=== PATIENT | female | born 1960 | race Caucasian/White ===

== ENCOUNTER 2016-11-12 15:17 | Emergency (ER) | payer OTHER ==
[2016-11-12 15:31] VITALS: BP 135/85; PULSE 82; TEMP 98.1; BMI 27.3
--- NOTE | 2016-11-12 15:50 | PDOC ---
History of Present Illness - General History Source: Patient, Old Records Exam Limitations: No Limitations - History of Present Illness Initial Comments: 11/12/16 16:43 The patient is a 56 year old female with a significant past medical history of hyperlipidemia who presents to the emergency department today complaining of left foot pain for 5 days. The patient states that she believes the symptoms are the result of a fall she had one month ago. She describes the pain as soreness worsened on exertion. The patient denies arthritis and gout. The patient denies chest pain, shortness of breath, and cough. The patient denies nausea, vomiting, and diarrhea. <Shen Andrews - Last Filed: 11/12/16 20:19> - History of Present Illness Initial Comments: 11/16/16 09:33 There is mild erythema, induration, and point tenderness over the prominence of the scaphoid bone. No sensory or motor deficits distally. No history of trauma or injury of any kind. X-ray shows soft tissue swelling, possibly some increase in bone density. Jamir wrap applied. Crutches were recommended, but patient referred to use a cane. Minimal weight bearing and follow-up with orthopedist recommended. Anti- inflammatories were begun. Patient was adequately ambulatory upon discharge with her to follow up as directed. Exact etiology of the inflammation is uncertain which should be investigated by orthopedist in a timely fashion. Patient understands and agrees. <Anthony Pizano - Last Filed: 11/16/16 09:37> - General Chief Complaint: Pain, Acute Stated Complaint: PAIN LEFT FOOT Time Seen by Provider: 11/12/16 15:42 Past History <Shen Andrews - Last Filed: 11/12/16 20:19> - Past Medical History GI Disorders: Yes (REFLUX) Hypercholesterolemia: Yes Psychiatric Problems: Yes (ANXIETY) - Psycho/Social/Smoking Cessation Hx Anxiety: No Suicidal Ideation: No Smoking History: Never smoked Have you smoked in the past 12 months: Yes Number of Cigarettes Smoked Daily: 20 Information on smoking cessation initiated: No 'Breaking Loose' booklet given: 05/31/16 Hx Alcohol Use: No Drug/Substance Use Hx: No Substance Use Type: None <Anthony Pizano - Last Filed: 11/16/16 09:37> - Past Medical History Allergies/Adverse Reactions: Allergies Allergy/AdvReac Type Severity Reaction Status Date / Time acetaminophen [From Vicodin] Allergy Verified 11/12/16 15:19 hydrocodone bitartrate Allergy Verified 11/12/16 15:19 [From Vicodin] Home Medications: Ambulatory Orders Aspirin [ASA -] 81 mg PO DAILY tab.chew 06/01/16 Simvastatin [Zocor -] 20 mg PO HS 06/01/16 Sertraline HCl [Zoloft -] 50 mg PO HS 07/06/16 Ibuprofen 800 mg PO TID #20 tablet 11/12/16 Review of Systems - Review of Systems Able to Perform ROS?: Yes Comments:: 11/12/16 16:44 CONSTITUTIONAL: Absent: fever, chills, diaphoresis, generalized weakness, malaise, loss of appetite HEENT: Absent: rhinorrhea, nasal congestion, throat pain, throat swelling, difficulty swallowing, mouth swelling, ear pain, eye pain, visual Changes CARDIOVASCULAR: Absent: chest pain, syncope, palpitations, irregular heart rate, lightheadedness , peripheral edema RESPIRATORY: Absent: cough, shortness of breath, dyspnea with exertion, orthopnea, wheezing, stridor, hemoptysis GASTROINTESTINAL: Absent: abdominal pain, abdominal distension, nausea, vomiting, diarrhea, constipation, melena, hematochezia GENITOURINARY: Absent: dysuria, frequency, urgency, hesitancy, hematuria, flank pain, genital pain MUSCULOSKELETAL: Present: left foot pain SKIN: Absent: rash, itching, pallor HEMATOLOGIC/IMMUNOLOGIC: Absent: easy bleeding, easy bruising, lymphadenopathy, frequent infections ENDOCRINE: Absent: unexplained weight gain, unexplained weight loss, heat intolerance, cold intolerance NEUROLOGIC: Absent: headache, focal weakness or paresthesias, dizziness, seizure, mental status changes, bladder or bowel incontinence PSYCHIATRIC: Absent: anxiety, depression, suicidal or homicidal ideation, hallucinations. <Shen Andrews - Last Filed: 11/12/16 20:19> *Physical Exam - Vital Signs Last Vital Signs Temp Pulse Resp BP Pulse Ox 98.1 F 82 16 135/85 97 11/12/16 15:25 11/12/16 15:25 11/12/16 15:25 11/12/16 15:25 11/12/16 15:25 - Physical Exam Comments: 11/12/16 16:58 GENERAL: Well developed, well nourished. Awake and alert. In no acute distress. HEENT: Normocephalic, atraumatic. PERRLA, EOMI. No conjunctival pallor. Sclera are non- icteric. Moist mucous membranes. Oropharynx is clear. NECK: Supple. Full ROM. No JVD. Carotid pulses 2+ and symmetric, without bruits. No thyromegaly. No lymphadenopathy. CARDIOVASCULAR: Regular rate and rhythm. No murmurs, rubs, or gallops. Distal pulses are 2+ and symmetric. PULMONARY: No evidence of respiratory distress. Lungs clear to auscultation bilaterally. No wheezing, rales or rhonchi. ABDOMINAL: Soft. Non-tender. Non-distended. No rebound or guarding. No organomegaly. Normoactive bowel sounds. MUSCULOSKELETAL Normal range of motion at all joints. No bony deformities or tenderness. No CVA tenderness. EXTREMITIES: Swelling, mild erythema and tenderness over the scaphoid prominence of the left foot. No abrasion or laceration. No history of an acute injury, full pulses and no sensory deficit. SKIN: Warm and dry. Normal capillary refill. No rashes. No jaundice. NEUROLOGICAL: Alert, awake, appropriate. Cranial nerves 2-12 intact. No deficits to light touch and temperature in face, upper extremities and lower extremities. No motor deficits in the in face, upper extremities and lower extremities. Normoreflexic in the upper and lower extremities. Normal speech. <Shen Andrews - Last Filed: 11/12/16 20:19> - Vital Signs Last Vital Signs Temp Pulse Resp BP Pulse Ox 98.1 F 82 16 135/85 97 11/12/16 15:25 11/12/16 15:25 11/12/16 15:25 11/12/16 15:25 11/12/16 15:25 <Anthony Pizano - Last Filed: 11/16/16 09:37> ED Treatment Course - LABORATORY CBC & Chemistry Diagram: 11/12/16 16:05 11/12/16 16:05 <Shen Andrews - Last Filed: 11/12/16 20:19> - LABORATORY CBC & Chemistry Diagram: 11/12/16 16:05 11/12/16 16:05 <Anthony Pizano - Last Filed: 11/16/16 09:37> *DC/Admit/Observation/Transfer - Attestations Scribe Attestion: 11/12/16 16:44 Documentation prepared by Shen Andrews, acting as medical billing associate for Anthony Pizano MD. <Shen Andrews - Last Filed: 11/12/16 20:19> - Discharge Dispostion Admit: No <Anthony Pizano - Last Filed: 11/16/16 09:37> Diagnosis at time of Disposition: Tenosynovitis of foot - Discharge Dispostion Disposition: HOME Condition at time of disposition: Stable - Prescriptions Prescriptions: Ibuprofen 800 mg PO TID #20 tablet - Referrals Referrals: Hamlet Nath MD [Staff Physician] - - Patient Instructions Printed Discharge Instructions: DI for Tenosynovitis Additional Instructions: Use a cane, avoid weight bearing, rest and elevate, ice, anti-inflammatory medication as directed See electronic commerce specialist in 2 or 3 days for further evaluation and treatment.
[2016-11-12 16:42] LABS: BASOPHIL 0.3 % (0-2.0); EOSINOPHIL 2.6 % (0-4.5); MCH 31.8 pg (25.7-33.7); MEAN CELL VOLUME 96.4 fl (80-96); MEAN PLT VOLUME 7.9 fl (7.5-11.1); NEUTROPHILS 60.5 % (42.8-82.8); PLATELET COUNT 310 K/MM3 (134-434); RDW 12.5 % (11.6-15.6); WHITE BLOOD COUNT 9.9 K/mm3 (4.0-10.0)
[2016-11-12 16:57] LABS: ALBUMIN 4.8 g/dl (3.5-5.0); ALK PHOS 98 U/L (32-92); ANION GAP 7 (8-16); BILIRUBIN,TOTAL 0.4 mg/dl (0.2-1.0); CALCIUM 9.6 mg/dl (8.4-10.2); CO2 28 mmol/L (22-28); CREATININE 0.8 mg/dl (0.6-1.3); GLUCOSE,RANDOM 92 mg/dl (74-106); SGOT/AST 34 U/L (10-42); SGPT/ALT 35 U/L (10-40); TOT PROT 8.1 g/dl (6.4-8.3)
[2016-11-12] MEDS ORDERED: IBUPROFEN 400 MG TABLET (FP) PO ONE (18:20)
== END 2016-11-12 18:33 | disposition home or self-care (01) ==
LOC: FER 15:17
DX: M65.872 Other synovitis and tenosynovitis, left ankle and foot (principal); K21.9 Gastro-esophageal reflux disease without esophagitis; F41.9 Anxiety disorder, unspecified; E78.00 Pure hypercholesterolemia, unspecified; F17.210 Nicotine dependence, cigarettes, uncomplicated; Z79.82 Long term (current) use of aspirin
CPT/HCPCS: 36415; 73630-TC-LT; 80053; 84550; 85025; 99282-25

== ENCOUNTER 2017-04-21 14:22 | Observation (INO) | payer OTHER ==
--- NOTE | 2017-04-21 14:27 | PDOC ---
History of Present Illness - General History Source: Patient Exam Limitations: No Limitations - History of Present Illness Initial Comments: 04/21/17 15:43 The patient is a 57 year old female, with a significant past medical history of hyperlipidemia, who presents to the emergency department with complaints of shortness of breath, chest pain, neck pain, and bilateral arm pain. The patient reports that for the past few days she has had neck pain that originates in the middle of her neck and radiates to both sides. She also reports that this pain radiates to her shoulders. The patient states that today when she left her house her arms felt tight and sore and she experienced some nausea. She reports that he neck pain is worsened with movement of her head and is alleviated by icing the affected area. The patient recalls that last night she did experience some chills. She, headache and dizziness. She denies vomit, diarrhea and constipation. PMH:reflux, anxiety Allergies:Acetaminophen, Hydrocodone bitartrate Social history: Current everyday smoker (1 pack per day), Occasional alcohol use Family History: No history of heart or lung disease PCP: Dr. Joseph Phan <Carmel Gottlieb - Last Filed: 04/21/17 15:47> <Sanchez Lu - Last Filed: 04/21/17 19:55> - General Chief Complaint: Chest Pain Stated Complaint: chest pain, sob, arm pain Time Seen by Provider: 04/21/17 14:25 Past History <Carmel Gottlieb - Last Filed: 04/21/17 15:47> - Past Medical History GI Disorders: Yes (REFLUX) Hypercholesterolemia: Yes Psychiatric Problems: Yes (ANXIETY) - Psycho/Social/Smoking Cessation Hx Anxiety: No Suicidal Ideation: No Smoking History: Never smoked Have you smoked in the past 12 months: Yes Number of Cigarettes Smoked Daily: 20 'Breaking Loose' booklet given: 05/31/16 Hx Alcohol Use: No Drug/Substance Use Hx: No Substance Use Type: None <Sanchez Lu - Last Filed: 04/21/17 19:55> - Past Medical History Allergies/Adverse Reactions: Allergies Allergy/AdvReac Type Severity Reaction Status Date / Time acetaminophen [From Vicodin] Allergy Verified 04/21/17 14:24 hydrocodone bitartrate Allergy Verified 04/21/17 14:24 [From Vicodin] Home Medications: Ambulatory Orders Aspirin [ASA -] 81 mg PO DAILY tab.chew 06/01/16 Simvastatin [Zocor -] 20 mg PO HS 06/01/16 Sertraline HCl [Zoloft -] 50 mg PO DAILY 04/21/17 Review of Systems - Review of Systems Able to Perform ROS?: Yes Comments:: 04/21/17 15:43 CONSTITUTIONAL: +Chills Absent: Fever, Diaphoresis, Generalized Weakness, Malaise, Loss of Appetite HEENT: Absent: Rhinorrhea, Nasal Congestion, Throat Pain, Throat Swelling, Difficulty Swallowing, Mouth Swelling, Ear Pain, Eye Pain, Visual Changes CARDIOVASCULAR:+Chest pain Absent: Syncope, Palpitations, Irregular Heart Rate, Lightheadedness, Peripheral Edema RESPIRATORY:Shortness of breath Absent: Cough, Orthopnea, Wheezing, Stridor, Hemoptysis GASTROINTESTINAL: +Nausea Absent: Abdominal pain, Abdominal Distension , Vomiting, Diarrhea, Constipation , Melena, Hematochezia GENITOURINARY: Absent: Dysuria, Frequency, Urgency, Hesitancy, Flank Pain, Genital Pain MUSCULOSKELETAL: +Bilateral arm pain, +Neck pain, Absent:Joint Swelling, Back pain, SKIN: Absent: Rash, Itching, PalloR HEMEATOLOGIC/IMMUNOLOGIC: Absent: Easy Bleeding, Easy Bruising, Lymphadenopathy, Frequent infections ENDOCRINE: Absent: Unexplained Weight Gain, Unexplained Weight Loss, Heat Intolerance, Cold Intolerance NEUROLOGIC: Absent: Headache, Focal Weakness, Paresthesias, Vertigo, Lightheadedness, Unsteady Gait, Seizure, Mental Status Changes, Incontinence PSYCHIATRIC: Absent: Anxiety, Depression <Carmel Gottlieb - Last Filed: 04/21/17 15:47> *Physical Exam - Vital Signs Last Vital Signs Temp Pulse Resp BP Pulse Ox 98.4 F 89 17 133/78 94 L 04/21/17 14:24 04/21/17 14:24 04/21/17 14:24 04/21/17 14:24 04/21/17 14:24 - Physical Exam Comments: 04/21/17 15:44 GENERAL: +Patient grimaces with movement of her neck. The patient is awake, alert, and fully oriented HEAD: Normal with no signs of trauma. EYES: Pupils equal, round and reactive to light, extraocular movements intact, sclera anicteric, conjunctiva clear. ENT: Ears normal, nares patent, oropharynx clear without exudates. Moist mucous membranes. NECK: +Increased pain with flexion and rotation of the neck Supple without lymphadenopathy, JVD, or masses. LUNGS: Breath sounds equal, clear to auscultation bilaterally. No wheezes, and no crackles. HEART: Regular rate and rhythm, normal S1 and S2 without murmur, rub or gallop. ABDOMEN: +Obese Soft, nontender, normoactive bowel sounds. No guarding, no rebound. No masses. EXTREMITIES: Normal range of motion, no edema. No clubbing or cyanosis. No cords , erythema, or tenderness. NEUROLOGICAL: Cranial nerves II through XII grossly intact. Normal speech, normal gait. PSYCH: Normal mood, normal affect. SKIN: Warm, Dry, normal turgor, no rashes or lesions noted. <Carmel Gottlieb - Last Filed: 04/21/17 15:47> Heart Score/ECG Review - ECG Impressions Comment:: 04/21/17 15:21 Ekg reading: Normal sinus rhythm at 78. Normal axis and normal intervals, no acute ST elevations or depressions Minor nonspecific t wave flattening Otherwise normal ekg. <Carmel Gottlieb - Last Filed: 04/21/17 15:47> - History History: Moderately suspicious - Electrocardiogram EKG: Non specific repolarization disturbance - Age Age: 45-65 - Risk Factors Risk Factors Heart Score: Yes Hx Hypercholesterolemia, Yes Smoking History Based on the list above the patient has:: 1-2 risk factors - Troponin Troponin: </= normal limit - Score Heart Score - Total: 4 - ECG Impressions Comment:: 04/21/17 15:37 In comparison with the old EKG from 06/29/11, the inferior t wave flattening is unchanged. <Sanchez Lu - Last Filed: 04/21/17 19:55> ED Treatment Course - RADIOLOGY Radiograph Interpretation: 04/21/17 15:39 RAD/CHEST PA + LAT Reported by: Dr Ney Michael Reviewed by: Dr. Sanchez Lu Impression: No acute pathology. No significant change. RAD/SPINE - CERVICAL Impression: Straightening. Degenerative changes with wedging. Nuchal ligament calcification. If symptoms persist, further imaging with CT or MR may be of help. - Medications Given in the ED: ED Medications Discontinued Medications Generic Name Dose Route Start Last Admin Trade Name Edgardo PRN Reason Stop Dose Admin Aspirin 162 mg 04/21/17 14:54 04/21/17 15:12 Asa - PO 04/21/17 14:55 162 mg ONCE ONE Administration <Carmel Gottlieb - Last Filed: 04/21/17 15:47> - LABORATORY CBC & Chemistry Diagram: 04/21/17 15:09 04/21/17 15:09 <Sanchez Lu - Last Filed: 04/21/17 19:55> Medical Decision Making - Medical Decision Making 04/21/17 17:28 She is a 57-year-old female with a history of hyperlipidemia and smoking. She presents complaining of neck pain which is radiating to both shoulders and down both arms. She has numbness in both arms. She also has chest pain and shortness of breath. Examination is notable for neck pain with range of motion. Chest x-ray is unremarkable. C spine shows DJD and disc disease. Twelve-lead EKG shows normal sinus rhythm with minor nonspecific ST flattening. Troponin times one is negative. Fashion: Chest pain, shortness of breath, and neck pain. Possibilities include musculoskeletal neck pain, however, it is difficult to explain the chest pain and shortness of breath on the basis of musculoskeletal neck pain. Acute coronary syndrome is also possible. Heart score is 4 points, moderate risk. Patient will be admitted for further evaluation. Patient discussed with Dr. Phan. She will be admitted to telemetry for further cardiac evaluation. <Sanchez Lu - Last Filed: 04/21/17 19:55> *DC/Admit/Observation/Transfer - Attestations Scribe Attestion: 04/21/17 15:44 Documentation prepared by RONNELL Osborne, acting as medical device assembler for Sanchez Lu MD. <Carmel Gottlieb - Last Filed: 04/21/17 15:47> - Discharge Dispostion Admit: Yes Decision to Admit order Date/Time: 04/21/17 17:[address] Phan, aware at 535 pm. <Sanchez Lu - Last Filed: 04/21/17 19:55> Diagnosis at time of Disposition: Acute chest pain, Cervical neck pain with evidence of disc disease - Discharge Dispostion Condition at time of disposition: Stable - Referrals
[2017-04-21] MEDS ORDERED: ASPIRIN 81 MG CHEWABLE TABLETS PO ONE (14:54)
[2017-04-21] MEDS ORDERED: ASPIRIN 81 MG CHEWABLE TABLETS ONE (15:10)
[2017-04-21 15:31] LABS: BASOPHIL 0.9 % (0-2.0); MCH 32.8 pg (25.7-33.7); MCHC 33.8 g/dl (32.0-36.0); MEAN CELL VOLUME 96.9 fl (80-96); MEAN PLT VOLUME 8.3 fl (7.5-11.1); NEUTROPHILS 67.4 % (42.8-82.8); PLATELET COUNT 275 K/MM3 (134-434); RDW 12.1 % (11.6-15.6); WHITE BLOOD COUNT 9.8 K/mm3 (4.0-10.8)
[2017-04-21 15:48] LABS: CPK(DFH) 106 IU/L (26-140)
[2017-04-21 15:49] LABS: ALBUMIN 4.3 g/dl (3.5-5.0); ALK PHOS 83 U/L (32-92); ANION GAP 9 (8-16); BILIRUBIN,TOTAL 0.6 mg/dl (0.2-1.0); CALCIUM 9.4 mg/dl (8.4-10.2); CO2 24 mmol/L (22-28); CREATININE 0.7 mg/dl (0.6-1.3); GLUCOSE,RANDOM 96 mg/dl (74-106); SGOT/AST 19 U/L (10-42); SGPT/ALT 23 U/L (10-40); TOT PROT 7.1 g/dl (6.4-8.3)
[2017-04-21 16:50] LABS: TROPONIN I (DFP) < 0.03 ng/ml (0.03-0.50)
[2017-04-21] MEDS ORDERED: OXYCODONE/APAP 5/325MG COMBO TABLET PO ONE (17:38)
[2017-04-21] MEDS ORDERED: OXYCODONE/APAP 5/325MG COMBO TABLET ONE (17:42)
[2017-04-21 19:02] VITALS: BMI 28.3
[2017-04-21] MEDS ORDERED: ACETAMINOPHEN 325 MG TABLET (FP) PO PRN (20:52)
[2017-04-21] MEDS ORDERED: SERTRALINE HCL 50 MG TABLET (FP) PO SCH (22:00)
[2017-04-21] MEDS ORDERED: PATIENT'S OWN MEDICATION (NON-FORMULARY) (Simvastatin 20 MG) PO SCH (22:00)
[2017-04-21] MEDS ORDERED: ATORVASTATIN CA 10 MG TABLET (FP) PO SCH (22:00)
--- NOTE | 2017-04-22 07:01 | PN ---
Progress Note (short form) - Note Progress Note: Chief Complaint: Events noted, notes reviewed, evaluation of chest pain, neck pain with bilateral shoulder discomfort History of Present Illness: Seen and examined on telemetry. Full consult dictated - Current Medication List Current Medications Acetaminophen (Tylenol -) 650 mg PO Q6H PRN PRN Reason: FEVER OR PAIN Aspirin (Asa -) 81 mg PO DAILY [facility] Atorvastatin Calcium (Lipitor -) 10 mg PO HS [facility] Last Admin: 04/21/17 21:39 Dose: 10 mg Sertraline HCl (Zoloft -) 50 mg PO HS [facility] Last Admin: 04/21/17 21:39 Dose: 50 mg Review of Systems Cardiovascular: As noted above Respiratory: denies: Cough or Sputum Production Gastrointestinal: denies: Nausea, Vomiting, Diarrhea, Constipation or Abdominal Discomfort Musculoskeletal: As noted above Genitourinary: No symptoms reported - Objective Vital Signs: Last Vital Signs Temp Pulse Resp BP Pulse Ox 98.0 F 61 18 118/67 95 04/22/17 06:00 04/22/17 06:00 04/22/17 06:00 04/22/17 06:00 04/22/17 06:00 Constitutional: No Distress, Calm Neck: Supple Negative JVD No Bruit Respiratory: Clear to A&P Bilaterally Cardiovascular: S1 S2 Regular Rate and Rhythm No Murmurs Gastrointestinal: Soft Benign Normal Bowel Sounds Ext: No Edema Labs: CBC, BMP 04/21/17 15:09 04/21/17 15:09 Troponin, BNP 04/21/17 04/21/17 14:56 21:25 Troponin I < 0.03 L 0.01 Assessment/Plan ASSESSMENT: 1. Chest pain syndrome atypical for CAD angina pectoris 2. Neck discomfort with radiation to both upper extremities with hand parasthesia, consistent with cervical radiculopathy 3. Hypercholesterolemia 4. Tobacco abuse PLAN: 1. Continue statin therapy 2. Continue ASA therapy 3. Counselled smoking cessation and abstinence 4. Recommend MPI study and echocardiography with her software quality assurance analyst Dr. Bud Viramontes as outpatient for further evaluation, discussed in detail with the patient Yg Mendenhall M.D.
[2017-04-22] MEDS ORDERED: IBUPROFEN 400 MG TABLET (FP) PO PRN (07:17)
[2017-04-22 09:22] LABS: CPK(DFH) 88 IU/L (26-140)
[2017-04-22] MEDS ORDERED: ACETAMINOPHEN 325 MG TABLET (FP) PO ONE (10:00)
[2017-04-22] MEDS ORDERED: ASPIRIN 81 MG CHEWABLE TABLETS PO SCH (10:00)
[2017-04-22 10:07] LABS: TROPONIN I (DFP) < 0.03 ng/ml (0.03-0.50)
--- NOTE | 2017-04-22 10:19 | HP ---
Admitting History and Physical - Primary Care Physician PCP: Joseph Phan - Admission Chief Complaint: pain in bothr arms/ neck / chest History of Present Illness: The patient is a 57 year old female, with a significant past medical history of hyperlipidemia, who presents to the emergency department with complaints of shortness of breath, chest pain, neck pain, and bilateral arm pain. The patient reports that for the past few days she has had neck pain that originates in the middle of her neck and radiates to both sides. She also reports that this pain radiates to her shoulders. The patient states that today when she left her house her arms felt tight and sore and she experienced some nausea. She reports that he neck pain is worsened with movement of her head and is alleviated by icing the affected area. pt admitted for observation as ekg showed non specific changes c spine - showed arthritic changes Case was discussed with er physician last night. Pt seen/ examined/ chart reviewed today mi ruled out feels ok- but still have pain in both arms otherwise ok, denies cp/ sob today slightly anxious no urinary trouble denies headche/ dizziness or abd pain admits continue to smoke History Source: Patient Limitations to Obtaining History: No Limitations - Past Medical History Cardiovascular: Yes: Hyperlipdemia Psych: Yes: Depression - Smoking History Smoking history: Current every day smoker Have you smoked in the past 12 months: Yes Aproximately how many cigarettes per day: 20 - Alcohol/Substance Use Hx Alcohol Use: No - Social History Usual Living Arrangement: Yes: With Significant Other History of Recent Travel: No Home Medications - Allergies Allergies/Adverse Reactions: Allergies Allergy/AdvReac Type Severity Reaction Status Date / Time acetaminophen [From Vicodin] Allergy Verified 04/21/17 14:24 hydrocodone bitartrate Allergy Verified 04/21/17 14:24 [From Vicodin] - Home Medications Home Medications: Ambulatory Orders Aspirin [ASA -] 81 mg PO DAILY tab.chew 06/01/16 Simvastatin [Zocor -] 20 mg PO HS 06/01/16 Sertraline HCl [Zoloft -] 50 mg PO DAILY 04/21/17 Acetaminophen [Tylenol .Regular Strength -] 650 mg PO Q6H PRN #0 tablet Naproxen [EC-Naprosyn] 375 mg PO BID PRN #30 tablet.ec MDD 2 04/22/17 Family Disease History - Family Disease History Family Disease History: Heart Disease: Father Review of Systems Findings/Remarks: see [email or web address] Physical Examination Vital Signs: Vital Signs Temperature 98.0 F 04/22/17 06:00 Pulse Rate 61 04/22/17 06:00 Respiratory Rate 18 04/22/17 07:58 Blood Pressure 118/67 04/22/17 06:00 O2 Sat by Pulse Oximetry (%) 95 04/22/17 07:58 Constitutional: Yes: No Distress, Anxious Eyes: Yes: WNL, Conjunctiva Clear HENT: Yes: WNL Neck: Yes: Supple, Trachea Midline, Other (slight discomfort - in movement of neck-- laterally) Cardiovascular: Yes: Regular Rate and Rhythm Respiratory: Yes: CTA Bilaterally Gastrointestinal: Yes: Soft Edema: No Neurological: Yes: Alert Psychiatric: Yes: Alert Imaging - Results Chest X-ray: Report Reviewed X-ray: Report Reviewed EKG: Report Reviewed Problem List - Problems (1) Cervical neck pain with evidence of disc disease Code(s): M50.90 - CERVICAL DISC DISORDER, UNSP, UNSPECIFIED CERVICAL REGION (2) Atypical chest pain Code(s): R07.89 - OTHER CHEST PAIN (3) Hyperlipidemia Code(s): E78.5 - HYPERLIPIDEMIA, UNSPECIFIED Qualifiers: Hyperlipidemia type: Pure hypercholesterolemia (4) Depression Code(s): F32.9 - MAJOR DEPRESSIVE DISORDER, SINGLE EPISODE, UNSPECIFIED (5) Smoker Code(s): F17.200 - NICOTINE DEPENDENCE, UNSPECIFIED, UNCOMPLICATED Assessment/Plan Mi ruled out . 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 Young also today I believe symptoms coming from neck will prescribe naproxyn ice packs will d/c today pt in agreement f/u in office in one week. if symptoms persist - will do mri as out pt smoking cessation counselling also provided meds reconcilled discussed with nursing staff also time spend 40 min in examining/ documenting and coordating care
[2017-04-22 12:16] VITALS: BP 109/64; PULSE 62; TEMP 98
--- NOTE | 2017-04-22 12:44 | DS ---
Physical Examination Vital Signs: Vital Signs Temperature 98 F 04/22/17 12:00 Pulse Rate 62 04/22/17 12:00 Respiratory Rate 18 04/22/17 12:00 Blood Pressure 109/64 04/22/17 12:00 O2 Sat by Pulse Oximetry (%) 99 04/22/17 12:15 Discharge Summary Reason For Visit: ACUTE CHEST PAIN,CERVICAL NECK PAIN WITH EVIDENCE Current Active Problems Acute chest pain (Acute) Cervical neck pain with evidence of disc disease (Acute) Depression (Acute) Smoker (Acute) Hospital Course: see h/p of today Condition: Stable - Instructions Referrals: Joseph Phan MD [Primary Care Provider] - Disposition: HOME - Home Medications Comprehensive Discharge Medication List: Ambulatory Orders Aspirin [ASA -] 81 mg PO DAILY tab.chew 06/01/16 Simvastatin [Zocor -] 20 mg PO HS 06/01/16 Sertraline HCl [Zoloft -] 50 mg PO DAILY 04/21/17 Acetaminophen [Tylenol .Regular Strength -] 650 mg PO Q6H PRN #0 tablet Naproxen [EC-Naprosyn] 375 mg PO BID PRN #30 tablet.ec MDD 2 04/22/17
--- NOTE | 2017-04-22 17:36 | CONS ---
DATE OF CONSULTATION: 04/22/[address] Joseph Phan MD CHIEF COMPLAINT: Neck discomfort, chest discomfort, cardiovascular evaluation. A 57-year-old female with exogenous obesity, with known history of hypercholesterolemia, tobacco abuse, who [facility] with neck discomfort with radiation to both shoulders with associated bilateral hand paresthesia and chest discomfort. Patient stated that the above-noted discomfort has been noted for the last several days and symptoms have progressed. Symptoms were not exacerbated with physical exertion but they were exacerbated by certain movements. Patient denied any associated diaphoresis. Patient reported dyspnea with moderate physical exertion. Patient denied any orthopnea, paroxysmal nocturnal dyspnea, or peripheral edema. The patient denied any history of palpitation, dizziness, lightheadedness, or syncope. Patient reported fatigue and tiredness. Patient stated that she had a treadmill exercise stress test performed about a year ago with her identity access management architect, Dr. Holland Viramontes, and it was reported to be negative. The above-noted test was performed at [facility]. PAST MEDICAL HISTORY: Hypercholesterolemia, anxiety disorder. PAST SURGICAL HISTORY: Breast augmentation. SOCIAL HISTORY: Smoker. FAMILY HISTORY: Positive coronary artery disease. ALLERGIES: To HYDROCODONE and ACETAMINOPHEN. Medical therapy currently includes Ecotrin 81 mg once a day, Lipitor 10 mg once a day, although patient is on Zocor at home, Zoloft 50 mg once a day. REVIEW OF SYSTEMS: Head and Neck: Denies headache, photophobia, blurring of vision. Respiratory: No cough or sputum production. Cardiovascular: As noted above. Gastrointestinal: Denies nausea, vomiting, diarrhea, abdominal discomfort. Genitourinary: No symptoms reported. Musculoskeletal: As noted above. PHYSICAL EXAMINATION: Vital Signs: Blood pressure is 118/67 mmHg. Pulse rate is 61 beats per minute. Head and Neck: Pupils equal, react to light and accommodation. Extraocular muscles are intact. Anicteric sclerae. Negative JVD. No bruit appreciated. Chest: Clear to auscultation and percussion. Cardiovascular: S1, S2 regular. No murmurs, clicks, or gallops. Abdomen: Soft, benign. Normoactive bowel sound. Extremities: Negative edema. Intact distal pulses. No calf tenderness. Electrocardiogram reveals sinus rhythm with nonspecific T wave abnormality. Compared to prior EKG performed June 29, 2011, no significant interval change other than absence of premature ventricular contraction. CBC revealed white cell count 9.8, hemoglobin 14.2, platelet count 275. Basic metabolic profile revealed a sodium 137, potassium 4.2, BUN 13, creatinine 0.7. CPK and troponin I levels were noted. ASSESSMENT: 1. Chest pain syndrome atypical for coronary artery disease, angina pectoris. 2. Neck discomfort with radiation to both upper extremities, with associated hand paresthesia consistent with cervical degenerative disk disease with cervical radiculopathy. 3. Hypercholesterolemia. 4. Tobacco abuse. RECOMMENDATION: 1. Continuation of statin therapy. 2. Continuation of aspirin therapy. 3. Patient was strongly counseled on smoking cessation and abstinence. 4. Recommend myocardial perfusion imaging study and echocardiography with her identity access management architect, Dr. Holland Viramontes, as outpatient for further evaluation. Discussed in detail with the patient. Thank you for the kind referral. ISAÍAS SIMPSON M.D. [id number]
--- NOTE | 2017-04-23 18:21 | EKG ---
Test Reason : Blood Pressure : / mmHG Vent. Rate : 078 BPM Atrial Rate : 078 BPM P-R Int : 164 ms QRS Dur : 076 ms QT Int : 352 ms P-R-T Axes : 072 058 019 degrees QTc Int : 401 ms NORMAL SINUS RHYTHM WHEN COMPARED WITH ECG OF 29-JUN-2011 13:15, PREMATURE VENTRICULAR COMPLEXES ARE NO LONGER PRESENT Confirmed by MD SMALLWOOD MARJORY ([id number]) on 04/23/2017 6:20:53 PM Referred By: Joseph Phan Confirmed By:LELE SMALLWOOD MD
== END 2017-04-22 13:35 | disposition home or self-care (01) ==
LOC: FER 14:22 → FM/S 17:51
PROVIDERS: ADMIT Internal Medicine; ATTEND Internal Medicine
DX: R07.89 Other chest pain (principal); M50.90 Cervical disc disorder, unspecified, unspecified cervical region; E78.5 Hyperlipidemia, unspecified; Z79.82 Long term (current) use of aspirin; F32.9 Major depressive disorder, single episode, unspecified; F17.200 Nicotine dependence, unspecified, uncomplicated
CPT/HCPCS: 36415; 71020-TC; 72050-TC; 80053; 82550; 83735; 84484; 85025; 93005; 99285-25; G0378

== ENCOUNTER 2017-08-01 11:33 | Emergency (ER) | payer OTHER ==
--- NOTE | 2017-08-01 11:38 | PDOC ---
History of Present Illness - General Chief Complaint: Injury Stated Complaint: FALL,WESLY ORBITAL ECHYMOSIS Time Seen by Provider: 08/01/17 11:37 History Source: Patient Exam Limitations: No Limitations - History of Present Illness Initial Comments: 08/01/17 11:39 This patient is a 57 year old female, with a significant past medical history of hyperlipidemia, who presents to the emergency department due to wesly orbital bruising. Pt states she fell three days ago. She fell down 3 or 4 stairs in her back yard Pt states that she tumbled over, can not tell me how she landed States she does not think she lost consciousness Immediately after falling, she noted abrasions of the knees The next morning she noted bruising of the dorsum of the right foot and the left great toe Two days ago, she noted a frontal hematoma to which she applied ice to decrease the swelling. Yesterday afternoon, she noted wesly orbital bruising, which concerned her She was in physical therapy today (for her cervical herniation) and they told her that she had some abrasion on her back PMH:reflux, anxiety Allergies:Acetaminophen, Hydrocodone bitartrate Meds: Asa, Zocor, Zoloft Social history: Current everyday smoker (1 pack per day), Occasional alcohol use Family History: No history of heart or lung disease PCP: Dr. Joseph Phan GENERAL/CONSTITUTIONAL: No: fever, chills, weakness, loss of appetite. HEAD, EYES, EARS, NOSE AND THROAT: No: change in vision, ear pain, discharge, sore throat, throat swelling. CARDIOVASCULAR: No: chest pain, lightheadedness, palpitations, syncope RESPIRATORY: No: cough, shortness of breath, wheezing, hemoptysis, stridor. GASTROINTESTINAL: No: nausea, vomiting, diarrhea, abdominal cramping, rectal bleeding, constipation. GENITOURINARY: No: dysuria, hematuria, frequency, urgency, flank pain. MUSCULOSKELETAL: Yes: left great toe pain No: back pain, neck pain, muscle swelling or pain SKIN: Yes: bruising, abrasions No: lesions, pallor, rash or easy bruising. NEUROLOGIC: No: headache, vertigo, paresthesias, weakness ENDOCRINE: No: unexplained weight gain or loss HEMATOLOGIC/LYMPHATIC: No: anemia, easy bleeding, swelling nodes. GENERAL: The patient is in no acute distress. HEAD: (+) head trauma. EYES: PERRLA, EOMI, sclera anicteric, conjunctiva clear, (+)Bruising around both eyes ENT: Ears normal, nares patent, oropharynx clear without exudates. Moist mucous membranes. NECK: Normal range of motion, supple, no midline tenderness to palpation LUNGS: Breath sounds equal, clear to auscultation bilaterally. No wheezes, and no crackles. HEART:Regular rate and rhythm, normal S1 and S2 without murmur, rub or gallop. ABDOMEN: Soft, nontender, normoactive bowel sounds. No guarding, no rebound. . EXTREMITIES: Normal range of motion, no edema. No clubbing or cyanosis. No erythema, or tenderness. NEUROLOGICAL: Cranial nerves II through XII grossly intact. Normal speech. No focal neurological deficits. MUSCULOSKELETAL: Back non-tender to palpation, no CVA tenderness SKIN: abrasions of arabella left knee and right knee, left hip, left lower back Bruising multiple regions: dorsum of right foot, left great toe, left back 08/01/17 11:52 Past History - Past Medical History Allergies/Adverse Reactions: Allergies Allergy/AdvReac Type Severity Reaction Status Date / Time acetaminophen [From Vicodin] Allergy Verified 08/01/17 11:34 hydrocodone bitartrate Allergy Verified 08/01/17 11:34 [From Vicodin] Home Medications: Ambulatory Orders Aspirin [ASA -] 81 mg PO DAILY tab.chew 06/01/16 Simvastatin [Zocor -] 20 mg PO HS 06/01/16 Acetaminophen [Tylenol .Regular Strength -] 650 mg PO Q6H PRN #0 tablet Naproxen [EC-Naprosyn 375 MG] 375 mg PO BID PRN #30 tablet.ec MDD 2 04/22/17 Lorazepam [Ativan] 0 mg PO DAILY 08/01/17 GI Disorders: Yes (REFLUX) Hypercholesterolemia: Yes Psychiatric Problems: Yes (ANXIETY) - Suicide/Smoking/Psychosocial Hx Smoking History: Current every day smoker Have you smoked in the past 12 months: Yes Number of Cigarettes Smoked Daily: 10 Information on smoking cessation initiated: Yes 'Breaking Loose' booklet given: 08/01/17 Hx Alcohol Use: No Drug/Substance Use Hx: No Substance Use Type: None Medical Decision Making - Medical Decision Making 08/01/17 12:[address] head Will do CT temporal bones Will do C Spine CT If negative, will d/c home 08/01/17 13:50 Ct head; mild volume loss, encephalomalacia of the right occipital lobe C Spine: no fracture or dislocation, degenerative changes noted Ct facial bones: no basilar skull fracture Will discharge to home Follow up with PMD *DC/Admit/Observation/Transfer Diagnosis at time of Disposition: Fall down stairs Qualifiers: Encounter type: initial encounter Qualified Code(s): W10.8XXA - Fall (on) (from ) other stairs and steps, initial encounter - Discharge Dispostion Disposition: HOME Condition at time of disposition: Stable Admit: No - Referrals - Patient Instructions Printed Discharge Instructions: Closed Head Injury, DI for Musculoskeletal Pain Additional Instructions: Thank you for coming to the ER today Please follow up with your primary care physician Return to the ER for any other concerns or complaints - Post Discharge Activity
[2017-08-01 11:40] VITALS: BP 126/80; PULSE 84; TEMP 98.9; BMI 27.3
== END 2017-08-01 14:02 | disposition home or self-care (01) ==
LOC: FER 11:33
DX: S09.90XA Unspecified injury of head, initial encounter (principal); W10.9XXA Fall (on) (from) unspecified stairs and steps, initial encounter; Y93.89 Activity, other specified; Y92.9 Unspecified place or not applicable; E78.5 Hyperlipidemia, unspecified; K21.9 Gastro-esophageal reflux disease without esophagitis; F17.210 Nicotine dependence, cigarettes, uncomplicated; F41.9 Anxiety disorder, unspecified
CPT/HCPCS: 70450-TC; 70486-TC; 72125-TC; 99281-25

== ENCOUNTER 2022-08-10 09:30 | Day surgery (SDC) | payer OTHER ==
[2022-08-08 12:16] VITALS: BMI 27.3
[2022-08-10] MEDS ORDERED: MIDAZOLAM HCL 2 MG/2 ML SINGLE DOSE VIAL ONE (12:13)
[2022-08-10] MEDS ORDERED: ROPIVACAINE HCL/PF 100 MG/20 ML VIAL ONE (12:13)
[2022-08-10] MEDS ORDERED: GLYCOPYRROLATE 0.2 MG/1 ML VIAL ONE (12:14)
[2022-08-10] MEDS ORDERED: ONDANSETRON 4 MG/2 ML VIAL IVPUSH PRN (14:28)
[2022-08-10] MEDS ORDERED: PROMETHAZINE HCL 25 MG/1 ML VIAL IVPUSH PRN (14:28)
[2022-08-10] MEDS ORDERED: oxyCODONE HCL 5 MG TABLET PO PRN ×2 (14:28)
[2022-08-10] MEDS ORDERED: KETOROLAC TROMETHAMINE 30 MG/1 ML VIAL IVPUSH ONE (14:29)
[2022-08-10] MEDS ORDERED: ACETAMINOPHEN 325 MG TABLET (FP) PO PRN (14:30)
[2022-08-10] MEDS ORDERED: ACETAMINOPHEN INJECTION 100 ML IVPB ONE (14:34)
[2022-08-10] MEDS ORDERED: ACETAMINOPHEN 1000 MG/100 ML BAG IVPB ONE (15:20)
[2022-08-10 16:46] VITALS: RESP 18; TEMP 97.8
[2022-08-10 16:48] VITALS: BP 121/74; PULSE 79
== END 2022-08-10 16:30 | disposition home or self-care (01) ==
LOC: FASU 09:30
PROVIDERS: ATTEND Orthopaedic Surgery Sports Medicine
PROC: 0LS34ZZ Reposition Right Upper Arm Tendon, Percutaneous Endoscopic Approach (ICD-10-PCS; 2022-08-10)
PROC: 0RHJ44Z Insertion of Internal Fixation Device into Right Shoulder Joint, Percutaneous Endoscopic Approach (ICD-10-PCS; 2022-08-10)
PROC: 0RNJ4ZZ Release Right Shoulder Joint, Percutaneous Endoscopic Approach (ICD-10-PCS; principal; 2022-08-10 13:06)
PROC: 0LQ14ZZ Repair Right Shoulder Tendon, Percutaneous Endoscopic Approach (ICD-10-PCS; 2022-08-10 13:06)
DX: M75.111 Incomplete rotator cuff tear or rupture of right shoulder, not specified as traumatic (principal); M75.42 Impingement syndrome of left shoulder; M75.21 Bicipital tendinitis, right shoulder
CPT/HCPCS: 29827; C1713; 94760

== ENCOUNTER 2025-07-17 05:59 | Day surgery (SDC) | payer OTHER ==
[2025-07-14 15:06] VITALS: BMI 27.3
[2025-07-17] MEDS ORDERED: VANCOMYCIN 1,000 MG VIAL (RESTRICTED TO ID ONLY) ONE (06:44)
[2025-07-17] MEDS ORDERED: SUCCINYLCHOLINE CHLORIDE 200 MG/10 ML SYRINGE ONE (06:50)
[2025-07-17] MEDS ORDERED: PROPOFOL 60 ML ONE (06:52)
[2025-07-17] MEDS ORDERED: DEXAMETHASONE SOD PHOSPHATE 4 MG/1 ML VIAL ONE (06:56)
[2025-07-17] MEDS ORDERED: METOCLOPRAMIDE HCL INJECTION 10 MG/2 ML VIAL ONE (06:56)
[2025-07-17] MEDS ORDERED: TRANEXAMIC ACID 1000 MG/10 ML VIAL ONE ×2 (06:56→09:06)
[2025-07-17] MEDS ORDERED: ONDANSETRON 4 MG/2 ML VIAL ONE (06:56)
[2025-07-17] MEDS ORDERED: MIDAZOLAM HCL 2 MG/2 ML SINGLE DOSE VIAL ONE (06:57)
[2025-07-17] MEDS ORDERED: MAGNESIUM SULF 50% (8.12 MEQ/2 ML-1 GM VIAL) ONE (06:57)
[2025-07-17] MEDS ORDERED: ACETAMINOPHEN INJECTION 100 ML ONE (06:59)
[2025-07-17] MEDS ORDERED: ROPIVACAINE HCL/PF 100 MG/20 ML VIAL ONE (06:59)
[2025-07-17] MEDS ORDERED: PROPOFOL 20 ML ONE (07:59)
[2025-07-17] MEDS ORDERED: BUPIVICAINE 0.25%/MORPH PF/KETOROLAC - 51ML DISP.SYRINGE IA ONE (08:49)
[2025-07-17] MEDS ORDERED: ONDANSETRON 4 MG/2 ML VIAL IVPUSH PRN (09:44)
[2025-07-17] MEDS ORDERED: ACETAMINOPHEN 325 MG TABLET (FP) PO PRN (09:44)
[2025-07-17] MEDS: SODIUM CHLORIDE 1,000 ML IV SCH (13:21)
[2025-07-17] MEDS: LACTATED RINGERS SOLUTION 1,000 ML IV SCH (13:21)
[2025-07-17] MEDS: ACETAMINOPHEN 500 MG TABLET (FP) PO SCH (16:10)
[2025-07-17] MEDS: CEFAZOLIN SODIUM 2 GM in DEXTROSE 5%-WATER 100 ML IVPB SCH (16:11)
[2025-07-18] MEDS: ENOXAPARIN NA (PORCINE) 40 MG/0.4 ML DISP.SYRIN SQ SCH (06:41)
[2025-07-18 08:14] LABS: MCHC 32.1 g/dl (32.2-35.5); MEAN CELL VOLUME 104.1 fl (79.4-94.8); MEAN PLT VOLUME 10.2 fl (9.4-12.3); RDW 12.3 % (12.4-16.4)
[2025-07-18] MEDS ORDERED: PATIENT'S OWN MEDICATION (NON-FORMULARY) (Ipratropium/Albuterol Sulfate 1 PUFF Inhaler) IH PRN (08:16)
[2025-07-18 08:53] LABS: CO2 27.0 mmol/L (21-32); CREATININE 0.6 mg/dl (0.6-1.3); GLUCOSE,RANDOM 116.0 mg/dl (74-106)
[2025-07-18] MEDS ORDERED: PATIENT'S OWN MEDICATION (NON-FORMULARY) (Meloxicam [Meloxicam] 15 MG Tablet) PO SCH (10:00)
[2025-07-18] MEDS: ASPIRIN 81 MG CHEWABLE TABLETS PO SCH (10:47)
[2025-07-18] MEDS: FLUTICASONE/UMECLIDIN/VILANTER(200-62.5-25 TRELEGY ELLIPTA) INAHLER IH SCH (10:47)
[2025-07-18] MEDS: SENNOSIDES/DOCUSATE COMBO (SENNA PLUS) TABLET (UD) PO PRN (11:41)
[2025-07-18 14:46] VITALS: RESP 18
[2025-07-18] MEDS: FAMOTIDINE 20 MG TABLET PO SCH (16:00)
[2025-07-18] MEDS ORDERED: IPRATROPIUM/ALBUTEROL (COMBIVENT) RESPIMAT 20-100 MCG IH PRN (16:24)
[2025-07-18] MEDS: ESCITALOPRAM OXALATE 10 MG TABLET PO SCH (16:30)
[2025-07-18] MEDS: ROFLUMILAST 250 MCG TABLET PO SCH (16:30)
[2025-07-18] MEDS: PATIENT'S OWN MEDICATION (NON-FORMULARY) (Simvastatin 20 MG Tablet) PO SCH (22:46)
[2025-07-19] MEDS: METOPROLOL TARTRATE 25 MG TABLET (FP) PO SCH (07:10)
[2025-07-19 08:41] LABS: MCHC 31.4 g/dl (32.2-35.5); MEAN CELL VOLUME 105.1 fl (79.4-94.8); MEAN PLT VOLUME 10.2 fl (9.4-12.3); RDW 12.7 % (12.4-16.4)
[2025-07-19 09:47] LABS: CO2 29.0 mmol/L (21-32); CREATININE 0.6 mg/dl (0.6-1.3); GLUCOSE,RANDOM 76.0 mg/dl (74-106)
[2025-07-19] MEDS ORDERED: ACETAMINOPHEN 325 MG TABLET (FP) PO PRN (14:42)
[2025-07-19 15:56] VITALS: BP 120/67; PULSE 75; TEMP 98.2
== END 2025-07-19 16:01 | disposition home or self-care (01) ==
LOC: FASUSAT 05:59 → FM/S 11:39 → FASUSAT 07-19 16:01
PROVIDERS: ATTEND Orthopaedic Surgery
PROC: 8E0W0CZ Robotic Assisted Procedure of Trunk Region, Open Approach (ICD-10-PCS; 2025-07-17)
PROC: 0SR903A Replacement of Right Hip Joint with Ceramic Synthetic Substitute, Uncemented, Open Approach (ICD-10-PCS; principal; 2025-07-17 07:30)
DX: M16.11 Unilateral primary osteoarthritis, right hip (principal)
CPT/HCPCS: 20985; 27130; S2900; 36415; 73502-TC-RT-FY; 80048; 85027; 86850; 86900; 86901; 87040; 88307-TC; 88311-TC; 94760; 97010-GP; 97116-GP; 97161-GP; C1776; J3535